=== PATIENT | male | born 1960 | race Caucasian/White ===

== ENCOUNTER 2016-07-09 17:47 | Emergency (ER) | payer BC, OTHER ==
[2016-07-09] MEDS ORDERED: IBUPROFEN 200 MG TAB PO ONE (18:23)
--- NOTE | 2016-07-09 18:27 | EDPHY ---
H & P Stated Complaint: Right testicle pain, Time Seen by Provider: 07/09/16 18:14 HPI/ROS: CHIEF COMPLAINT: Testicular mass HISTORY OF PRESENT ILLNESS: The patient is a 56-year-old man with history of vasectomy and obesity who comes to the emergency department stating that he noticed a lump underneath his right testicle 2 days ago. It is not change in size since then. It is not painful unless palpated. Is not been warm or erythematous. He has not had a fever. No pain with urination or ejaculation. No discharge. REVIEW OF SYSTEMS: Constitutional: denies: chills, fever, recent illness, recent injury EENTM: denies: blurred vision, double vision, nose congestion Respiratory: denies: cough, shortness of breath Cardiac: denies: chest pain, irregular heart rate, lightheadedness, palpitations Gastrointestinal/Abdominal: denies: abdominal pain, diarrhea, nausea, vomiting, blood streaked stools Genitourinary: See HPI Musculoskeletal: denies: joint pain, muscle pain Skin: denies: lesions, rash, jaundice, bruising Neurological: denies: headache, numbness, paresthesia, tingling, dizziness, weakness Hematologic/Lymphatic: denies: blood clots, easy bleeding, easy bruising Immunologic/allergic: denies: HIV/AIDS, transplant EXAM: GENERAL: Well-appearing, well-nourished and in no acute distress. HEAD: Atraumatic, normocephalic. EYES: Pupils equal round and reactive to light, extraocular movements intact, sclera anicteric, conjunctiva are normal. ENT: TMs normal, nares patent, oropharynx clear without exudates. Moist mucous membranes. NECK: Normal range of motion, supple without lymphadenopathy or JVD. LUNGS: Breath sounds clear to auscultation bilaterally and equal. No wheezes rales or rhonchi. HEART: Regular rate and rhythm without murmurs, rubs or gallops. ABDOMEN: Soft, nontender, normoactive bowel sounds. No guarding, no rebound. No masses appreciated. : The patient has a small marble sized lump below his right testicle. Normal cremasteric reflex. Mild tenderness. No erythema or swelling of the scrotum. BACK: No CVA tenderness, no spinal tenderness, step-offs or deformities EXTREMITIES: Normal range of motion, no pitting or edema. No clubbing or cyanosis. NEUROLOGICAL: Cranial nerves II through XII grossly intact. Normal speech, normal gait. 5/5 strength, normal movement in all extremities, normal sensation PSYCH: Normal mood, normal affect. SKIN: Warm, dry, normal turgor, no visible rashes or lesions. Source: Patient Exam Limitations: No limitations - Personal History Current Tetanus/Diphtheria Vaccine: Unsure Current Tetanus Diphtheria and Acellular Pertussis (TDAP): Unsure - Medical/Surgical History Hx Asthma: No Hx Chronic Respiratory Disease: No Hx Diabetes: No Hx Cardiac Disease: No Hx Renal Disease: No Hx Cirrhosis: No Hx Alcoholism: No Hx HIV/AIDS: No Hx Splenectomy or Spleen Trauma: No Other PMH: PMH: migraines, tooth extraction, sleep apnea, - Family History Significant Family History: Hypertension - Social History Smoking Status: Never smoked Alcohol Use: Sober Drug Use: None Constitutional: Initial Vital Signs Temperature (C) 36.8 C 07/09/16 17:51 Heart Rate 83 07/09/16 17:51 Respiratory Rate 16 07/09/16 17:51 Blood Pressure 131/93 H 07/09/16 17:51 O2 Sat (%) 94 07/09/16 17:51 O2 Delivery Mode Room Air Allergies/Adverse Reactions: Penicillins Allergy (Verified 11/15/15 21:35) Home Medications: Medication Instructions Recorded SUMAtriptan 07/09/16 TOPIRAMATE 07/09/16 Toradol 07/09/16 levOFLOXACIN [levAQUIN] 750 mg PO DAILY #10 tab 07/09/16 Medical Decision Making Procedures: Study: Ultrasound of the: The testicles Indication: Right testicle mass Results: US scan of the testicle was obtained. The results of the study are epididymitis all congestion and best consistent with epididymitis. The study was read by the radiologist, Dr. Rigoberto Yanes. I viewed the images myself on the PACS system. ED Course/Re-evaluation: Patient has epididymitis on ultrasound. He states that he has not had sexual intercourse in 12 years. I will start him on Levaquin. He agrees with this plan and will follow up with Urology. He declines further workup or testing at this time. Discussed risk of tendon injury with Levaquin. Differential Diagnosis: Partial list of the Differential diagnosis considered include but were not limited to; epididymitis, testicular mass, testicular torsion, cyst and although unlikely based on the history and physical exam, I also considered trauma, thrombus, cancer. I discussed these differential diagnoses and the plan with the patient as well as the usual and expected course. The patient understands that the diagnosis is provisional and that in medicine we are not always correct and that further workup is often warranted. Usual and customary warnings were given. All of the patient's questions were answered. The patient was instructed to return to the emergency department should the symptoms at all worsen or return, otherwise to followup with the physician as we discussed. - Data Points Laboratory Results: 07/09/16 07/09/16 20:26 20:17 Urine Color YELLOW Urine Appearance CLEAR Urine pH 5.0 (5.0-7.5) Ur Specific [place] 1.009 (1.002-1.030) Urine Protein NEGATIVE (NEGATIVE) Urine Ketones NEGATIVE (NEGATIVE) Urine Blood 1+ H (NEGATIVE) Urine Nitrate NEGATIVE (NEGATIVE) Urine Bilirubin NEGATIVE (NEGATIVE) Urine Urobilinogen NEGATIVE EU EU (0.2-1.0) Ur Leukocyte Esterase NEGATIVE (NEGATIVE) Urine RBC 1-3 /hpf /hpf (0-3) Urine WBC 1-3 /hpf /hpf (0-3) Ur Epithelial Cells NONE SEEN /lpf /lpf (NONE-1+) Urine Mucus TRACE /lpf /lpf (NONE-1+) Ur Culture Indicated? NOT INDICATED (NI) Urine Glucose NEGATIVE (NEGATIVE) C.trachomatis RNA (TMA) Pending N.gonorrhoeae RNA (TMA) Pending Medications Given: Discontinued Medications Ibuprofen (Motrin) 800 mg PO EDNOW ONE Stop: 07/09/16 18:24 Last Admin: 07/09/16 18:35 Dose: 800 mg Departure - Departure Disposition: Home, Routine, Self-Care Clinical Impression: Epididymitis Condition: Fair Instructions: Epididymitis (ED) Referrals: Mason Ayoub DO [Primary Care Provider] - As per Instructions Nikolas Montemayor MD [Medical Doctor] - As per Instructions Prescriptions: levOFLOXACIN [levAQUIN] 750 mg PO DAILY #10 tab
[2016-07-09 20:38] VITALS: BP 129/69; PULSE 85; RESP 12; TEMP 99; O2SAT 98
[2016-07-09 20:40] LABS: COLOR YELLOW; LEUKOCYTE ESTERASE,URINE NEGATIVE (NEGATIVE); NITRITE,URINE NEGATIVE (NEGATIVE)
[2016-07-09 20:44] LABS: MUCUS TRACE /lpf (NONE-1+)
[2016-07-12 14:20] LABS: CHLAMYDIA AMPLIFICATION GENPRB NEGATIVE (NEGATIVE)
== END 2016-07-09 20:38 | disposition home or self-care (01) ==
DX: N45.1 Epididymitis (principal)